=== PATIENT | female | born 1995 | race Caucasian/White ===

== ENCOUNTER 2021-02-21 16:15 | Outpatient (CLI) | payer OTHER, SELFPAY ==
--- NOTE | ~2021-02-21 | US_ITS ---
EXAMINATION: US OB follow up DATE: 02/21/2021 16:47 INDICATION: Routine care. TECHNIQUE: Real-time ultrasound of the pelvis was performed. COMPARISON: None. FINDINGS: There is a single living fetus in breech presentation. The placenta is anterior. heart rate is 145 beats per minute (bpm). The amniotic fluid volume is subjectively normal. The following biometric data were obtained: Biparietal diameter (BPD): 2.9 cm; head circumference (HC): 10.8 cm; abdominal circumference (AC): 9. 7 cm; femur length (FL): 1.9 cm. These measurements are concordant. Estimated weight is 132 g +/- 20 g, which correlates with >97th percentile when 08/26/21 is used as estimated date of delivery. As single measurements, these parameters are each equal to the following estimated gestational ages: BPD: 15 weeks 2 days. HC: 15 weeks 1 days. AC: 15 weeks 6 days. FL: 15 weeks 5 days. estimated gestational age based solely on measurements from this exam is 15 weeks 4 days +/- 1 weeks 1 days. IMPRESSION: 1. Single living fetus in breech presentation. 2. Large for gestational age. Estimated weight is 132 g +/- 20 g, which correlates with >97th percentile when 08/26/21 is used as estimated date of delivery. Reviewed, dictated and finalized at location A. IMPRESSION: 1. Single living fetus in breech presentation. 2. Large for gestational age. Estimated weight is 132 g +/- 20 g, which correlates with >97th percentile when 08/26/21 is used as estimated date of deli veryAnh
== END 2021-02-21 16:16 | disposition home or self-care (01) ==
PROVIDERS: Visit Provider Obstetrics & Gynecology
DX: Z34.92 Encounter for supervision of normal pregnancy, unspecified, second trimester (principal); Z3A.15 15 weeks gestation of pregnancy
CPT/HCPCS: 76816

== ENCOUNTER 2021-04-25 14:38 | Outpatient (CLI) | payer OTHER, SELFPAY ==
--- NOTE | ~2021-04-25 | US_ITS ---
EXAMINATION: US OB /maternal detail DATE: 04/25/2021 16:21 INDICATION: survey TECHNIQUE: Multiple obstetric sonographic images performed. FINDINGS: Comparison ultrasound dated 02/21/2021 There is a single living fetus in vertex presentation. The placenta is fundal without placenta previ a. Amniotic fluid volume is normal. JONO measures 17.6 cm. cardiac activity and movement is noted with a heart rate of 147 beats per minute. The following anatomy was identified as normal: 4 chamber heart 3 vessel cord cord insertion kidneys urinary bladder stomach spine diaphragm ventricles cisterna magna cerebellum The following biometric data were obtained: BPD: 58mm corresponds to gestational age 23 weeks 6 days. Head circumference: 227 mm corresponds to gestational age 24 weeks 5 days. Abdominal circumference: 206 mm corresponds to gestational age 25 weeks 2 days. Femur length: 45 mm corresponds to gestational age 24 weeks 6 days. Head circumference to abdominal circumference ratio: 1.1 (normal range for expected gestational age i s 1.04-1.22). Estimated weight: 756 grams +/- 113 grams using Hadlock method. IMPRESSION: 1: Single living intrauterine with an estimated gestational age of 24weeks 4days by initial ultrasound measurements, with an EDC of 08/11/2021 in vertex presentation. 2. Normal survey. Reviewed, dictated and finalized at location A. IMPRESSION: 1: Single living intrauterine with an estimated gestational age of 24 weeks 4days by initial ultrasound measurements, with an EDC of 08/11/2021 in ve rtex presentation. 2. Normal survey.
== END 2021-04-25 14:39 | disposition home or self-care (01) ==
LOC: ANHIMG 14:45
PROVIDERS: PCP Obstetrics & Gynecology; Visit Provider Obstetrics & Gynecology
DX: Z34.92 Encounter for supervision of normal pregnancy, unspecified, second trimester (principal); Z3A.24 24 weeks gestation of pregnancy
CPT/HCPCS: 76805

== ENCOUNTER 2021-06-01 11:45 | Outpatient (CLI) | payer OTHER, SELFPAY ==
--- NOTE | ~2021-06-01 | US_ITS ---
EXAMINATION: US OB follow up DATE: 06/01/2021 12:22 INDICATION: Routine care. TECHNIQUE: Real-time ultrasound of the pelvis was performed. COMPARISON: Ultrasound 04/25/2021, 02/21/2021 FINDINGS: There is a single living fetus in vertex presentation. The placenta is fundal. heart rate is 1 45 beats per minute (bpm). The amniotic fluid index is 20.9 cm, which is normal. The following biometric data were obtained: Biparietal diameter (BPD): 7.8 cm; head circumference (HC): 28.0 cm; abdominal circumference (AC): 24 .3 cm; femur length (FL): 5.4 cm. These measurements are discordant with FL/BPD < 5th percentile. Estimated weight is 1313 g +/- 197 g, which correlates with 19th percentile when 08/13/21 is us ed as estimated date of delivery. As single measurements, these parameters are each equal to the following estimated gestational ages: BPD: 31 weeks 1 days. HC: 30 weeks 5 days. AC: 28 weeks 4 days. FL: 28 weeks 5 days. estimated gestational age based solely on measurements from this exam is 29 weeks 6 days +/- 2 weeks 1 days. IMPRESSION: 1. Single living fetus in vertex presentation. 2. Estimated weight is 1313 g +/- 197 g, which correlates with 19th percentile when 08/13/21 i s used as estimated date of delivery. 3. Discordant biometrics with low FL/BPD ratio. Reviewed, dictated and finalized at location A. IMPRESSION: 1. Single living fetus in vertex presentation. 2. Estimated weight is 1313 g +/- 197 g, which correlates with 19th perc entile when 08/13/21 is used as estimated date of delivery. 3. Discordant biometrics with low FL/BPD ratio.
== END 2021-06-01 11:46 | disposition home or self-care (01) ==
PROVIDERS: PCP Obstetrics & Gynecology; Visit Provider Physician Assistant
DX: Z34.93 Encounter for supervision of normal pregnancy, unspecified, third trimester (principal); Z3A.29 29 weeks gestation of pregnancy
CPT/HCPCS: 36415; 76816; 85461

== ENCOUNTER 2021-06-28 11:35 | Observation (INO) | payer OTHER, SELFPAY ==
[2021-06-28 11:50] VITALS: BP 107/64; PULSE 85
[2021-06-28 12:00] VITALS: BP 109/68; PULSE 82
[2021-06-28 12:29] LABS: Add Urine Microscopic? YES; Appearance Urine Clear (Clear); Bacteria Urine Trace /hpf; Bilirubin Urine Negative (Negative); Blood Urine 1+ (Negative); Color Urine Yellow (Yellow); Glucose Urine UA Negative (Negative); Ketones Urine Negative (Negative); Leukocyte Esterase Ur Negative LEU/UL (Negative); Mucus Urine Rare /lpf; Nitrate Urine Negative (Negative); Protein Urine Negative (Negative); RBC Urine 21-50 /hpf (0-2); Specific Grav Ur 1.015 (1.001-1.035); Squamous Epithelial Cell Urine Moderate /hpf (Few); Urobilinogen Urine Negative mg/dL (<2.0); WBC Urine 0-3 /hpf
[2021-06-28 12:31] VITALS: BP 95/52; PULSE 69
[2021-06-28 13:01] VITALS: BP 80/59; PULSE 71
--- NOTE | 2021-06-28 16:12 | OBADM ---
This patient, Macey Esteves, admitted to the OB room OB Post 113 for observation. Patient/family oriented to hospital policies and general routines including ID bracelet, bed and alarms, visiting hours, pain management, procedures, bathroom and other care routines, personal items, smoking policy, room service/diet, and visiting hours. Patient/Family are encouraged to report perceived risks to care and to ask questions if they do not understand what they are told or what they should do.
--- NOTE | 2021-07-10 10:25 | PM.OBTRLD ---
OB - Triage/Final Diagnosis Visit Information Reason for evaluation: threatened labor Comments/Additional reasons for admission: I have assessed the risk for this patient, Macey Adamson Esteves, and determined that she would benefit from observation care. Evaluation Laboratory results: Laboratory Tests 06/28/21 12:01 Urine Color Yellow Urine Appearance Clear Urine pH 7.0 Ur Specific [place] 1.015 Urine Protein Negative Urine Glucose (UA) Negative Urine Ketones Negative Ur Blood (Man) 1+ H Urine Nitrate Negative Urine Bilirubin Negative Urine Urobilinogen Negative Leukocyte Esterase Rfl Negative Urine RBC 21-50 H Urine WBC 0-3 Ur Squamous Epith Cells Moderate H Urine Bacteria Trace Urine Mucus Rare
== END 2021-06-28 14:15 | disposition home or self-care (01) ==
LOC: ANHOBPP 13:24 → ANHLDR 07-02 11:11 → ANHOBPP 07-02 11:11
PROVIDERS: Admitting Provider Obstetrics & Gynecology; Visit Provider Obstetrics & Gynecology
DX: O47.03 False labor before 37 completed weeks of gestation, third trimester (principal); Z3A.33 33 weeks gestation of pregnancy
CPT/HCPCS: 81001; G0378; G0379

== ENCOUNTER 2021-07-27 20:43 | Observation (INO) | payer OTHER, SELFPAY ==
[2021-07-27 20:45] VITALS: BMI 35.3
[2021-07-27 20:54] VITALS: BP 111/71; PULSE 105
[2021-07-27 21:01] VITALS: BP 115/77; PULSE 109
[2021-07-27 21:16] VITALS: BP 113/72; PULSE 96
[2021-07-27 21:31] VITALS: BP 119/82; PULSE 89
--- NOTE | 2021-08-04 22:09 | PM.OBTRLD ---
OB - Triage/Final Diagnosis Visit Information Comments/Additional reasons for admission: I have assessed the risk for this patient, Macey Esteves, and determined that she would benefit from observation care. Final Diagnosis (1) False labor: Code(s): O47.9 - False labor, unspecified Status: Acute
== END 2021-07-27 21:45 | disposition home or self-care (01) ==
PROVIDERS: Admitting Provider Obstetrics & Gynecology; Visit Provider Obstetrics & Gynecology
DX: O47.1 False labor at or after 37 completed weeks of gestation (principal); Z3A.37 37 weeks gestation of pregnancy
CPT/HCPCS: G0378; G0379

== ENCOUNTER 2021-07-31 13:08 | Outpatient (RCR) | payer OTHER, SELFPAY ==
--- NOTE | ~2021-07-31 | US_ITS ---
EXAMINATION: US OB BPP wo non-stress DATE: 07/31/2021 14:49 INDICATION: Intrauterine growth retardation and polyhydramnios during third trimester . TECHNIQUE: Real-time pelvic ultrasound was performed. The interpreting radiologist was not present fo r the study. COMPARISON: 06/01/2021 FINDINGS: There is a single living fetus in vertex presentation. The placenta is anterior. heart rate is 150 beats per minute (bpm). Amniotic fluid volume is subjectively normal. Biophysical profile performed by the technologist: breathing (30 sec sustained breathing in 30 minutes): 2 out of 2 movement (3 gross body movements in 30 minutes): 2 out of 2 tone (one episode of vbxdkog-tdovmpyos-adjztoj limb movement): 2 out of 2 Amniotic fluid pocket (2 cm): 2 out of 2 Total score: 8 out of 8 IMPRESSION: 1. Single living fetus in vertex presentation with heart rate of 150 bpm. 2. Biophysical profile 8 out of 8. Reviewed, dictated and finalized at location A.
[2021-07-31 14:06] VITALS: BP 114/74; PULSE 94
== END 2021-09-03 09:28 | disposition home or self-care (01) ==
LOC: ANHOBOP 13:08
PROVIDERS: Visit Provider Obstetrics & Gynecology
DX: O36.5930 Maternal care for other known or suspected poor fetal growth, third trimester, not applicable or unspecified (principal); O36.8930 Maternal care for other specified fetal problems, third trimester, not applicable or unspecified; O40.3XX0 Polyhydramnios, third trimester, not applicable or unspecified; Z3A.38 38 weeks gestation of pregnancy
CPT/HCPCS: 59025; 76819; J2274

== ENCOUNTER 2021-07-31 13:57 | Outpatient (RCR) | payer OTHER, SELFPAY ==
[2021-07-31] MEDS: RHO(D) IMMUNE GLOBULIN 300 MCG/2 ML SYRINGE IM (15:05)
== END 2021-07-31 13:58 | disposition home or self-care (01) ==
LOC: ANHLAB 13:57
PROVIDERS: Visit Provider Obstetrics & Gynecology
DX: Z29.13 Encounter for prophylactic Rho(D) immune globulin (principal); O36.0190 Maternal care for anti-D [Rh] antibodies, unspecified trimester, not applicable or unspecified; Z3A.00 Weeks of gestation of pregnancy not specified
CPT/HCPCS: 36415; 85461; 86850; 86900; 86901; 90384; 96372; J2790

== ENCOUNTER 2021-08-03 05:43 | Inpatient (IN) | payer OTHER, SELFPAY ==
--- NOTE | 2021-07-31 13:44 | PC.NURSE ---
VERIFIED WITH OR SCHEDULE AND PATIENT--C/S ON 08/03/21 AT 1030 PATIENT GIVEN REQUISITION FOR PRE-OP LAB DRAW ON 08/02/21
--- NOTE | 2021-07-31 16:01 | PM.IMHP ---
H&P: HPI History of Present Illness Date/Time: 07/31/21 16:01 25 yo presents for repeat low-transverse section with delivery of infant and placenta at 38w6d. patient's complicated by growth restriction, 2 vessel umbilical cord, polyhydramnios and previous x2 with normal antepartum testing. she understands her condition procedure and risks involved and agrees to proceed. c/b growth restriction, polyhydramnios, Two vessel umbilical cord, history of STDs, MTHFR, hyperemesis gravidarum, HPV, BV, smoking, previous c-sectionx2, bipolar disorder, and GBS. her care began 02/14/2021 with total 9 visits monitored with serial ultrasounds, noninvasive testing revealing a male infant with normal genetics, alpha fetoprotein testing negative, MTHFR positive for heterozygous state treated with folic acid B12 progesterone and aspirin, 1 hour glucose normal, Rh negative with RhoGAM given recently, GBS positive, antepartum testing for high risk condition 2 vessel cord growth restriction poly I drained the OC with biophysical profiles normal and ST reactive. Consultation with maternal medicine agreed with delivery as early as 38 weeks with normal testing earlier if abnormal testing. I explained the procedure and the risks involved including but not limited to bleeding infection injury to bladder bowel baby pelvic vessels DVT pneumonia wound infection endometritis UTI risk of anesthesia risk of hemorrhage she understands accepts and agrees to proceed. boy- Desires duke , ped - Dr Lopez,bottle feed, IUD for control Chief Complaint: term , previous x2, growth restriction with polyhydramnios and 2 vessel umbilical cord, desires repeat Review of Systems Review of Systems: All systems reviewed & are unremarkable except as noted in HPI and below Constitutional: Constitutional: Reports no additional constitutional complaints Eyes: Eyes: Reports no additional eye complaints ENT: Reports system reviewed and no additional complaints, except as documented Cardiovascular: Cardiovascular: Reports no additional cardiovascular complaints Respiratory: Respiratory: Reports no additional respiratory complaints Gastrointestinal: Gastrointestinal: Reports no additional gastrointestinal complaints Genitourinary: Genitourinary: Reports no additional female genitourinary complaints Musculoskeletal: Musculoskeletal: Reports no additional musculoskeletal complaints Integumentary/Breasts: Skin/Breast: Reports system reviewed and no additional complaints, except as docu Neurologic: Reports system reviewed and no additional complaints, except as documented Psychiatric: Psychiatric: Reports no additional psychiatric complaints Endocrine: Endocrine: Reports no additional endocrine complaints Hematologic/Lymphatic: Hematologic/Lymphatic: Reports no additional hematologic/lymphatic complaints Allergic/Immunologic: Allergic/Immunologic: Reports no additional allergic/immunologic complaints [facility] Past Medical History Medical History (Updated 07/31/21 @ 16:46 by Toan Rojas MD) Asthma Candidiasis of vagina Chlamydia growth restriction GERD (gastroesophageal reflux disease) Group B streptococcal carriage complicating Heterozygous MTHFR mutation [id number] HPV (human papilloma virus) infection Migraine headache Polyhydramnios Rh negative status during Smoker Trichomonas infection Two vessel umbilical cord Venereal disease during Surgical History Surgical History (Updated 07/31/21 @ 16:48 by Toan Rojas MD) Delivery by section 11/05/20171407 lbs.12.99 oz.FPrimary [facility] 10/08/2019139.26 lbs.7 oz.FCesarean OnlyFull Term [facility]
--- NOTE | 2021-07-31 16:39 | P.HP_ITS ---
Obstetrics - Admit Note Admission Note: record reviewed. No pertinent additions to the history and/or any subsequent changes in the physical findings that are not consistent with the expected course of the were found. Additions to the history and/or subsequent changes in the physical findings follow. None. 25 yo presents for repeat low-transverse section with delivery of and placenta at 38w6d. patient's complicated by growth restriction, 2 vessel umbilical cord, polyhydramnios and previous x2 with normal antepartum testing. she understands her condition procedure and risks involved and agrees to proceed. c/b growth restriction, polyhydramnios, Two vessel umbilical cord, history of STDs, MTHFR, hyperemesis gravidarum, HPV, BV, smoking, previous c-sectionx2, bipolar disorder, and GBS. her care began 02/14/2021 with total 9 visits monitored with serial ultrasounds, noninvasive testing revealing a male infant with normal genetics, alpha fetoprotein testing negative, MTHFR positive for heterozygous state treated with folic acid B12 progesterone and aspirin, 1 hour glucose normal, Rh negative with RhoGAM given recently, GBS positive, antepartum testing for high risk condition 2 vessel cord growth restriction poly I drained the OC with biophysical profiles normal and ST reactive. Consultation with maternal medicine agreed with delivery as early as 38 weeks with normal testing earlier if abnormal testing. I explained the procedure and the risks involved including but not limited to bleeding infection injury to bladder bowel baby pelvic vessels DVT pneumonia w ound infection endometritis UTI risk of anesthesia risk of hemorrhage she understands accepts and agrees to proceed. boy- Desires circumsise , ped - Dr Lopez,bottle feed, IUD for control
[2021-08-03] VITALS (43 sets, daily range): BP systolic 95–146; BP diastolic 42–95; PULSE 28–119; RESP 16–20; TEMP 36.1–37.1; O2SAT 87–100; BMI 35.2; BMI 35.3
[2021-08-03 06:28] LABS: Basophils Percent Auto 0.4 % (0.2-1.2); Eosinophils Absolute Auto 0.1 K/mm3 (0-0.3); Eosinophils Percent Auto 1.2 % (0-4.4); Hematocrit 33.9 % (37.0-47.0); Hemoglobin 11.2 g/dL (12.0-15.0); Immature Granulocyte Absolute 0.06 K/mm3 (0.00-0.031); Immature Granulocyte Percent A 0.6 % (0-0.5); Lymphocytes Absolute Auto 2.17 K/mm3 (0.9-3.2); Lymphocytes Percent Auto 21.5 % (18.3-44.2); Mean Corpuscular Hemoglobin 28.4 pg (26-34); Mean Corpuscular Volume 85.8 fl (80-100); Mean Platelet Volume 10.2 fl (7.4-10.4); Monocytes Absolute Auto 0.8 K/mm3 (0.1-0.6); Monocytes Percent Auto 7.7 % (2.6-8.5); Neutrophils Absolute Auto 6.9 K/mm3 (1.3-6.7); Neutrophils Percent Auto 68.6 % (45.5-73.1); Platelet Count Result 207 k/mm3 (150-375); Red Blood Count 3.95 M/mm3 (4.2-5.4); Red Cell Distribution Width 14.6 % (11.5-14.5); White Blood Count 10.1 K/mm3 (4.5-10.0)
[2021-08-03] MEDS: LACTATED RINGERS 1,000 ML 125 ML IV CONT (06:30)
--- NOTE | 2021-08-03 06:54 | LDADM ---
This patient, Macey Esteves, was admitted to Labor/Delivery/Recovery 120 on 08/03/21 at 05:43. Plans for labor, pain management and were discussed with patient. Patient/family oriented to hospital policies and general routines including ID bracelet, bed and alarms, visiting hours, pain management, procedures, bathroom and other care routines, personal items, smoking policy, room service/diet and guest tray routines, security routines, and visiting hours. Patient/Family are encouraged to report perceived risks to care and to ask questions if they do not understand what they are told or what they should do. See OBIX for further documentation.
--- NOTE | 2021-08-03 07:12 | WPDANESEPPF ---
Anes - Initial Pre Proc Eval Procedure: Operation Date: 08/03/21 07:30 Proposed Procedures p Repeat Section - Toan Rojas MD Date/Time: 08/03/21 07:12 Surgeon: Toan Rojas MD Pre Op Diagnosis: C/S Patient Data Age: 25 Gender: F Height: 1.52 m Weight: 82 kg Last Vital Signs Pulse 91 08/03/21 06:31 BP 110/67 08/03/21 06:31 Allergies Allergy/AdvReac Type Severity Reaction Status Date / Time No Known Allergies Allergy Mild Verified 06/16/12 15:56 Laboratory Tests 08/03/21 08/03/21 06:22 06:22 WBC 10.1 K/mm3 H K/mm3 (4.5-10.0) RBC 3.95 M/mm3 L M/mm3 (4.2-5.4) Hgb 11.2 g/dL L g/dL (12.0-15.0) Hct 33.9 % L % (37.0-47.0) MCV 85.8 fl fl (80-100) MCH 28.4 pg pg (26-34) MCHC 33.0 g/dl g/dl (32-36) RDW 14.6 % H % (11.5-14.5) Plt Count 207 k/mm3 k/mm3 (150-375) MPV 10.2 fl fl (7.4-10.4) Immature Gran % (Auto) 0.6 % H % (0-0.5) Neut % (Auto) 68.6 % % (45.5-73.1) Lymph % (Auto) 21.5 % % (18.3-44.2) [place] % (Auto) 7.7 % % (2.6-8.5) Eos % (Auto) 1.2 % % (0-4.4) Baso % (Auto) 0.4 % % (0.2-1.2) Lymph # (Auto) 2.17 K/mm3 K/mm3 (0.9-3.2) [place] # (Auto) 0.8 K/mm3 H K/mm3 (0.1-0.6) Eos # (Auto) 0.1 K/mm3 K/mm3 (0-0.3) Baso # (Auto) 0.0 K/mm3 K/mm3 (0.0-0.1) Abs Immat Gran (auto) 0.06 K/mm3 H K/mm3 (0.00-0.031) Absolute Neuts (auto) 6.9 K/mm3 H K/mm3 (1.3-6.7) Absolute Nucleated RBC 0.0 K/mm3 K/mm3 (0.0-0.012) Nucleated RBC % 0.0 % % (0.0-0.2) RPR Pending Patient hx anesthesia problems: none Family hx anesthesia problems: none Results Review: All pre-operative results and documents have been reviewed as part of the pre-operative evaluation. [facility] Past Medical History Medical History ADD (attention deficit disorder) Asthma Bipolar disorder Candidiasis of vagina Chlamydia growth restriction GERD (gastroesophageal reflux disease) Group B streptococcal carriage complicating Heterozygous MTHFR mutation [id number] HPV (human papilloma virus) infection Migraine headache Polyhydramnios Rh negative status during Smoker Trichomonas infection Two vessel umbilical cord Venereal disease during Surgical History Surgical History Delivery by section 11/05/20171407 lbs.12.99 oz.FPrimary CesareanFull Term [facility] Delivery by section 10/08/2019139.26 lbs.7 oz.FCesarean [facility] Family History Grandparent Diabetes mellitus Throat cancer Mother Diabetes mellitus Breast cancer in female Sibling Diabetes mellitus Social History Social History Smoking packs per day: 1 Smoking cigarettes per day: 20.0 Years smoked: 3 Smoking pack-years: 3.00 Smoking status: Never smoker Tobacco type: cigarettes Second hand tobacco smoke exposure: No Alcohol intake: former Substance use: current Substance use type: marijuana Last use: ONE WEEK AGO Gender identity (if verbalized by the patient): Female Sexual Orientation (if Verbalized by the Patient): Straight or Heterosexual Spiritual care concerns: No Agree to blood products: Yes Anes - Eval Final PreProcedure Day of Procedure 08/03/21 07:12 Patient weight: obese Heart: regular rate and rhythm Lungs: decreased breath sounds Airway: Mallampati scale class II Neurological: alert and oriented Last oral intake: >/= 8 hours ASA classification: III Emergent: no Anesthetic plan: proceed Anesthesia type and monitoring
--- NOTE | 2021-08-03 07:19 | P.HPUP_ITS ---
History and Physical Update Update Date/Time: 08/03/21 06:39 History and Physical has been reviewed, including an updated exam of the patient. There are NO changes in the patient's condition. Risks, benefits, and alternatives have been discussed and questions answered. Patient agrees to proceed with procedure. 25 yo presents for repeat low-transverse section with delivery of and placenta at 38w6d. patient's complicated by growth restriction, 2 vessel umbilical cord, polyhydramnios and previous x2 with normal antepartum testing. she understands her condition procedure and risks involved and agrees to proceed. c/b growth restriction, polyhydramnios, Two vessel umbilical cord, history of STDs, MTHFR, hyperemesis gravidarum, HPV, BV, smoking, previous c-sectionx2, bipolar disorder, and GBS. her care began 02/14/2021 with total 9 visits monitored with serial ultrasounds, noninvasive testing revealing a male infant with normal genetics, alpha fetoprotein testing negative, MTHFR positive for heterozygous state treated with folic acid B12 progesterone and aspirin, 1 hour glucose normal, Rh negative with RhoGAM given recently, GBS positive, ant epartum testing for high risk condition 2 vessel cord growth restriction poly I drained the OC with biophysical profiles normal and ST reactive. Consultation with maternal medicine agreed with delivery as early as 38 weeks with normal testing earlier if abnormal testing. I explained the procedure and the risks involved including but not limited to bleeding infection injury to bladder bowel baby pelvic vessels DVT pneumonia wound infection endometritis UTI risk of anesthesia risk of hemorrhage she understands accepts and agrees to proceed. boy- Desires circumsise , ped - Dr Lopez,bottle feed, IUD for control
[2021-08-03] MEDS: ceFAZolin 2 GM/D5W 50 ML 2 GM/50 ML BAG IVPB (07:35)
[2021-08-03] MEDS: KETOROLAC 30 MG/ML VIAL (*BKC) IV PUSH ×2 (08:17→16:59)
--- NOTE | 2021-08-03 08:42 | P.PCNOB_ITS ---
OB - Delivery Note Procedure Delivery date: 08/03/21 Procedure: Procedures Operation Date: 08/03/21 07:30 < repeat low-transverse section with delivery of viable male and placenta> events: Previous Intrapartal events: None Induction method: none Delivery monitor: external FHT and external uterine Route of delivery: ( repeat low-transverse) Episiotomy description: None Laceration Description: None Specimen: Yes ( placenta, cord blood, cord blood gases) Quantitative Blood Loss (ml): 580 Anesthesia type: Spinal ( Duramorph) Disposition: floor Complications: none Narrative: see detailed operative note [place] Date of : 08/03/21 Time of : 08:02 Weeks of gestation at delivery: 39 gender: Male Weight (pounds): 6 Weight (ounces): 12 presentation: vertex position: Right Occiput Posterior Placenta delivery description: Manual Removal and Normal Configuration cord vessel description: 3 Vessels score one minute: 8 score five minutes: 9 Narrative: normal transition taken to the nursery in stable condition
[2021-08-03 08:45] LABS: Barbiturate Screen Urine Negative (Negative); Benzodiazepines Screen Urine Negative (Negative)
--- NOTE | 2021-08-03 08:45 | W.PM.PROC2 ---
Procedure Note - Detailed Date of Procedure 08/03/21 Pre-op Diagnosis (1) Term : Code(s): Z34.90 - Encounter for supervision of normal , unspecified, unspecified trimester Status: Acute (2) Delivery by section: Status: Acute (3) Delivery by section: Status: Acute (4) growth restriction: Status: Acute (5) 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 Status: Acute (6) Polyhydramnios: Code(s): O40.9XX0 - Polyhydramnios, unspecified trimester, not applicable or unspecified Status: Acute (7) Smoker: Code(s): F17.200 - Nicotine dependence, unspecified, uncomplicated Status: Acute (8) Rh negative status during : Code(s): O26.899 - Other specified related conditions, unspecified trimester; Z67.91 - Unspecified blood type, Rh negative Status: Acute (9) Heterozygous MTHFR mutation [id number]: Code(s): Z15.89 - Genetic susceptibility to other disease Status: Acute (10) Group B streptococcal carriage complicating : Code(s): O99.820 - Streptococcus B carrier state complicating Status: Acute (11) HPV (human papilloma virus) infection: Code(s): B97.7 - Papillomavirus as the cause of diseases classified elsewhere Status: Acute Post-op Diagnosis same ((1) Term : Code(s): Z34.90 - Encounter for supervision of normal , unspecified, unspecified trimester Status: Acute (2) Delivery by section: Status: Acute (3) Delivery by section: Status: Acute (4) growth restriction: Status: Ac) Procedure Performed repeat low-transverse section with delivery of viable male infant and placenta Surgeon Toan Rojas MD [employer] Emmanuelle assistant technician Anesthesia spinal ( with Duramorph by Solomon REYES) Indications previous section x2 desires repeat section Findings viable male infant delivered at 8:02 a.m. on 08/03/2021 occiput posterior scores 8 and 9 at 1 and 5 minutes respectively weight 6 lb 12 oz length 19 in Spontaneous respirations and cry normal transition taken to the nursery in stable condition with normal exam Placenta intact with a three-vessel cord delivered at 8:04 a.m. sent to pathology Uterus tubes ovaries normal Omental anterior abdominal wall adhesions Antibiotic prophylaxis Ancef 3 g VTE prevention SCDs Counts correct Complications none Cord gases cord blood and placenta sent Absorbable vini and Dermabond to the skin Taken to the recovery room stable condition Description of Procedure informed consent obtained the patient was taken to the operating room where she was placed in the sitting position a spinal anesthetic was administered with Duramorph. Patient was placed in the supine position and a Wiley catheter was inserted and then her abdomen was prepped and then she was draped in the usual sterile fashion. A time-out was performed. An elliptical incision was made around the old scar and the old scar was excised using electrocautery. The fascia was entered with electrocautery and extended bilaterally. Fascia was undermined inferiorly and superiorly. Rectus muscles were the midline. A transverse incision was made to the uterus rupture membranes revealed clear fluid the incision was extended bilaterally digitally. The vertex was in the occiput posterior position and required rotation to get the rounded head to be delivered with fundal pressure. The vertex was then delivered via the abdominal incision with the nose and throat bulb suction cord was clamped and cut the infant was handed to the nursery nurse in attendance scores 8 9 at 1 and 5 minutes spontaneous respirations and cry infant taken to the nursery in stable condition with normal transition. Th
[2021-08-03 08:51] LABS: Amphetamine Screen Urine Negative (Negative); Cannabinoid Screen Urine Positive (Negative); Methadone Screen Urine Negative (Negative); Opiate Screen Urine Negative (Negative); Phencyclidine Screen Urine Negative (Negative)
[2021-08-03] MEDS: diphenhydrAMINE HCl INJ 50 MG/ML VIAL 25 MG IV PUSH (08:58)
[2021-08-03] MEDS: OXYTOCIN 30 UNITS/NS 500 ML 30 UNITS/500 ML BAG 125 UNITS IV CONT (10:49)
--- NOTE | 2021-08-03 10:53 | PC.NURSE ---
Patient transferred to post room #284 via stretcher. Support person present. Oriented to unit, room, information board, rooming in, admission packet and security measures. Patient verbalizes understanding.
--- NOTE | 2021-08-03 11:05 | PM.OBTRLD ---
OB - Triage/Final Diagnosis Visit Information Comments/Additional reasons for admission: I have assessed the risk for this patient, Macey Esteves, and determined that she would benefit from observation care. Evaluation Laboratory results: Laboratory Tests 08/03/21 08/03/21 08/03/21 06:22 06:22 07:45 WBC 10.1 H RBC 3.95 L Hgb 11.2 L Hct 33.9 L MCV 85.8 MCH 28.4 MCHC 33.0 RDW 14.6 H Plt Count 207 MPV 10.2 Immature Gran % (Auto) 0.6 H Neut % (Auto) 68.6 Lymph % (Auto) 21.5 [place] % (Auto) 7.7 Eos % (Auto) 1.2 Baso % (Auto) 0.4 Lymph # (Auto) 2.17 [place] # (Auto) 0.8 H Eos # (Auto) 0.1 Baso # (Auto) 0.0 Abs Immat Gran (auto) 0.06 H Absolute Neuts (auto) 6.9 H Absolute Nucleated RBC 0.0 Nucleated RBC % 0.0 Urine Opiates Screen Negative Urine Methadone Screen Negative Ur Barbiturates Screen Negative Ur Phencyclidine Scrn Negative Ur Amphetamine Screen Negative U Benzodiazepines Scrn Negative Urine Cocaine Screen TNP U Cannabinoids Screen Positive A Blood Type O Negative Antibody Screen Positive Vital signs: Vital Signs - 24 hr 08/03/21 06:31 08/03/21 08:40 08/03/21 08:41 Temperature 97.0 F L Pulse Rate 91 71 Respiratory Rate Blood Pressure 110/67 108/67 Pulse Oximetry 100 08/03/21 08:45 08/03/21 08:46 08/03/21 08:50 Temperature Pulse Rate 76 Respiratory Rate Blood Pressure 122/73 Pulse Oximetry 100 100 08/03/21 08:51 08/03/21 08:55 08/03/21 08:57 Temperature Pulse Rate 67 112 H Respiratory Rate Blood Pressure 105/65 99/42 L Pulse Oximetry 100 08/03/21 09:00 08/03/21 09:01 08/03/21 09:05 Temperature Pulse Rate Respiratory Rate Blood Pressure 114/87 Pulse Oximetry 100 100 08/03/21 09:06 08/03/21 09:10 08/03/21 09:11 Temperature Pulse Rate 60 71 Respiratory Rate Blood Pressure 124/95 H 134/94 H Pulse Oximetry 100 08/03/21 09:15 08/03/21 09:16 08/03/21 09:20 Temperature Pulse Rate 55 L Respiratory Rate Blood Pressure 127/79 Pulse Oximetry 100 100 08/03/21 09:21 08/03/21 09:25 08/03/21 09:26 Temperature Pulse Rate 56 L 58 L Respiratory Rate 20 Blood Pressure 125/84 123/80 Pulse Oximetry 100 08/03/21 09:30 08/03/21 09:32 08/03/21 09:35 Temperature Pulse Rate 77 Respiratory Rate Blood Pressure 122/64 Pulse Oximetry 100 100 08/03/21 09:40 08/03/21 09:45 08/03/21 09:47 Temperature Pulse Rate 76 Respiratory Rate 20 Blood Pressure 113/50 L Pulse Oximetry 98 100 08/03/21 09:48 08/03/21 09:50 08/03/21 09:52 Temperature Pulse Rate 74 119 H Respiratory Rate Blood Pressure 118/77 95/64 L Pulse Oximetry 100 08/03/21 09:54 08/03/21 09:55 08/03/21 09:57 Temperature Pulse Rate 72 Respiratory Rate 20 Blood Pressure 138/86 Pulse Oximetry 88 L 08/03/21 10:10 08/03/21 10:25 08/03/21 10:32 Temperature Pulse Rate 68 Respiratory Rate 20 20 Blood Pressure 119/88 Pulse Oximetry 08/03/21 10:37 08/03/21 10:40 08/03/21 10:41 Temperature Pulse Rate 69 76 Respiratory Rate 20 Blood Pressure 124/58 L 115/74 Pulse Oximetry Final Diagnosis (1) False labor: Code(s): O47.9 - False labor, unspecified Status: Acute
[2021-08-03 11:51] LABS: Rapid Plasma Reagin Non-Reactive (NonReactive)
[2021-08-03] MEDS: HYDROcodone/acetaminophen (*CRX) 5-325 MG TABLET 1 TAB PO (12:32)
[2021-08-03] MEDS: DEXTROSE 5%/0.45% SOD CHL 1,000 ML 125 ML IV CONT (17:00)
[2021-08-03] MEDS: SIMETHICONE 80 MG TAB.CHEW PO (21:48)
[2021-08-03] MEDS: HYDROcodone/acetaminophen (*CRX) 10-325 MG TABLET 1 TAB PO (21:48)
[2021-08-03] MEDS: IBUPROFEN 600 MG TABLET PO (23:19)
[2021-08-04] MEDS: HYDROcodone/acetaminophen (*CRX) 10-325 MG TABLET 1 TAB PO ×7 (02:38→23:39)
[2021-08-04] MEDS: SIMETHICONE 80 MG TAB.CHEW PO ×2 (02:44→07:35)
[2021-08-04 04:30] VITALS: BP 121/78; PULSE 99; RESP 16; TEMP 36.1
[2021-08-04 05:24] LABS: Basophils Percent Auto 0.3 % (0.2-1.2); Eosinophils Absolute Auto 0.1 K/mm3 (0-0.3); Eosinophils Percent Auto 0.8 % (0-4.4); Hematocrit 29.8 % (37.0-47.0); Hemoglobin 9.9 g/dL (12.0-15.0); Immature Granulocyte Absolute 0.07 K/mm3 (0.00-0.031); Immature Granulocyte Percent A 0.5 % (0-0.5); Lymphocytes Percent Auto 19.6 % (18.3-44.2); Mean Corpuscular HGB Conc 33.2 g/dl (32-36); Mean Corpuscular Hemoglobin 28.7 pg (26-34); Mean Corpuscular Volume 86.4 fl (80-100); Monocytes Absolute Auto 0.8 K/mm3 (0.1-0.6); Monocytes Percent Auto 6.3 % (2.6-8.5); Neutrophils Absolute Auto 9.2 K/mm3 (1.3-6.7); Neutrophils Percent Auto 72.5 % (45.5-73.1); Platelet Count Result 181 k/mm3 (150-375); Red Blood Count 3.45 M/mm3 (4.2-5.4); Red Cell Distribution Width 14.6 % (11.5-14.5); White Blood Count 12.8 K/mm3 (4.5-10.0)
[2021-08-04] MEDS: IBUPROFEN 600 MG TABLET PO ×3 (05:27→17:52)
[2021-08-04] MEDS: metroNIDAZOLE 250 MG TABLET 500 MG PO ×4 (06:17→23:40)
[2021-08-04] MEDS: POLYSACCHARIDE IRON COMPLEX 150 MG CAPSULE PO ×2 (07:35→17:52)
[2021-08-04] MEDS: DOCUSATE SODIUM 100 MG CAPSULE PO ×2 (07:35→17:52)
[2021-08-04 07:40] VITALS: BP 120/51; PULSE 68; RESP 16; TEMP 36.2; O2SAT 98
[2021-08-04] MEDS: AZITHROMYCIN 250 MG TABLET 500 MG PO (08:27)
--- NOTE | 2021-08-04 09:12 | PM.OBPNVD ---
OB - PN: Subj Subjective Date/time seen: 08/04/21 09:12 Patient comments: no complaints, pain well controlled, tolerating diet and flatus present baby status: doing well and bottle feeding well feeding status: exclusively bottle feeding OB - PN: Obj Data Labs CBC & Chem 7: 08/04/21 04:29 Labs: Laboratory Results - last 24 hr 08/03/21 08/03/21 08/03/21 06:22 06:22 07:45 WBC RBC Hgb Hct MCV MCH MCHC RDW Plt Count MPV Immature Gran % (Auto) Neut % (Auto) Lymph % (Auto) [place] % (Auto) Eos % (Auto) Baso % (Auto) Lymph # (Auto) [place] # (Auto) Eos # (Auto) Baso # (Auto) Abs Immat Gran (auto) Absolute Neuts (auto) Absolute Nucleated RBC Nucleated RBC % Urine Cocaine Screen TNP RPR Non-reactive Blood Type Antibody Screen Antibody Identification Passive Due to RH Imm Glob Antigen Identification TNP MARKUS, IgG Interpret Not Performed MARKUS, Poly Interpret Negative MARKUS, Complement Interp Not Performed Screen Baby's Blood Type Baby's MARKUS Doses of RhIg Required 08/04/21 08/04/21 04:29 04:29 WBC 12.8 H RBC 3.45 L Hgb 9.9 L Hct 29.8 L MCV 86.4 MCH 28.7 MCHC 33.2 RDW 14.6 H Plt Count 181 MPV 11.0 H Immature Gran % (Auto) 0.5 Neut % (Auto) 72.5 Lymph % (Auto) 19.6 [place] % (Auto) 6.3 Eos % (Auto) 0.8 Baso % (Auto) 0.3 Lymph # (Auto) 2.50 [place] # (Auto) 0.8 H Eos # (Auto) 0.1 Baso # (Auto) 0.0 Abs Immat Gran (auto) 0.07 H Absolute Neuts (auto) 9.2 H Absolute Nucleated RBC 0.0 Nucleated RBC % 0.0 Urine Cocaine Screen RPR Blood Type O Negative Antibody Screen TNP Antibody Identification Antigen Identification MARKUS, IgG Interpret MARKUS, Poly Interpret MARKUS, Complement Interp Screen Negative Baby's Blood Type O pos Baby's MARKUS Negative Doses of RhIg Required 1 OB - PN A/P Assessment and Plan (1) Term delivered: Code(s): O80 - Encounter for full-term uncomplicated delivery Status: Acute (2) Delivery by section: Status: Acute Plan day: 1 Plan: routine care, discharge home and follow up 6 weeks Time Spent With Patient Time: Total time spent is greater than 50% in coordination of care (as documented) at patient's floor/unit and/or counseling patient: Time with patient: less than 15 minutes Review of Systems Review of Systems: All systems reviewed & are unremarkable except as noted in HPI and below Exam Const: General: comfortable, no acute distress, alert and awake Chest: Breast/axilla inspection: normal inspection of the breasts Resp: Effort & Inspection: normal respiratory effort Cardio: Rate: regular rate GI: Inspection: incision (Dressing dry and intact) GI Palp: Yes Soft to palpation Percussion: Yes normal to percussion Auscultation: normal bowel sounds : External Female Exam: normal external appearance Bimanual exam- vagina & uterus: non-tender Psych: Appearance: grossly normal Mental Status: mental status grossly normal Affect: normal affect Attitude: cooperative Thought content: Yes Normal thought content present Judgement: Good judgement present (Psych)
--- NOTE | 2021-08-04 13:11 | PCCCNOTE ---
Addendum entered by JIMMIE Dillard 08/04/21 13:46: Email from [facility]: The information you provided did not meet one of the criteria for an investigation (eligible victim, eligible perpetrator, eligible event, or jurisdiction). If there is a current open case involving this family, the assigned worker will be notified of your report so he/she can follow up; additionally the information provided has been documented and will be kept on file. VERONICA Ocampo notified. Possible discharge for pt. and baby tomorrow. Original Note: Met with pt. regarding positive THC on her UDC. Pt. reports using THC to increase her appetite and control her nausea. Baby did not have any orders for meconium testing or UDS. Pt's support person, JUAN DAVID Mai, was in the restroom the duration of Care Coordination visit with pt. Pt. reports she and will live in [place] with JUAN DAVID Mai and one of her daughters. The oldest daughter lives with her mother Thalia in [place]. Pt. reports having a big support system and having all necessary baby supplies. Pt. states working on being established with [facility] and already established with [facility] [place]. Pt. states her prior involvement consists of unfounded cases and nothing open currently. Pt. reports having a [facility] preventative worker named Ms. Leon. resources provided. [facility] online intake #[phone]. VERONICA Ocampo aware.
[2021-08-04] MEDS: RHO(D) IMMUNE GLOBULIN 300 MCG/2 ML SYRINGE IM (14:49)
--- NOTE | 2021-08-04 14:54 | WPDANLDNPN2 ---
Anes-Prog Note L&D-Neuraxial Date/Time: 08/04/21 14:54 Neuraxial medications: intrathecal PF morphine Opiod-related complaints: none Patient feedback: Patient satisfied with post-operative pain management.
--- NOTE | 2021-08-04 14:54 | WPDANLDPN2 ---
Anes-Prog Note L&D Date/Time: 08/04/21 14:54 Comfortable throughout: section Neuraxial method: spinal Epidural/Spinal procedure site: clean & non-tender Neuro status: Neuro function grossly intact. Cardiovascular status: normal Respiratory status: normal Airway patency: baseline Mental status: baseline Post-Op hydration status: normal Vital Signs: Last Vital Signs Temp 36.2 C L 08/04/21 07:40 Pulse 68 08/04/21 07:40 Resp 16 08/04/21 07:40 BP 120/51 L 08/04/21 07:40 Pulse Ox 98 08/04/21 07:40 Pain score (VAS): 2 I/O: Intake & Output 08/03/21 08/04/21 08/04/21 23:59 07:59 15:59 Intake Total 1820 700 Output Total 1250 1550 Balance 570 -850 Post-procedural complaints: none Patient feedback: Patient satisfied with anesthetic care.
[2021-08-04 16:30] VITALS: BP 119/77; PULSE 86; RESP 16; TEMP 36.2; O2SAT 100
[2021-08-04 21:00] VITALS: BP 114/65; PULSE 85; RESP 18; TEMP 36.9; O2SAT 100
--- NOTE | 2021-08-04 23:29 | PC.NURSE ---
08/04/2021 at 2200 Patient viewed the discharge video Mother & Baby Care, The First Two Weeks . Patient was given the opportunity and encouraged to ask questions. Patient verbalized understanding of information shared and has been given the mother/baby guide for home reference.
[2021-08-05] MEDS: SIMETHICONE 80 MG TAB.CHEW PO ×3 (03:15→10:19)
[2021-08-05] MEDS: HYDROcodone/acetaminophen (*CRX) 10-325 MG TABLET 1 TAB PO ×2 (03:15→10:29)
[2021-08-05] MEDS: IBUPROFEN 600 MG TABLET PO ×2 (03:15→10:18)
[2021-08-05] MEDS: metroNIDAZOLE 250 MG TABLET 500 MG PO ×2 (05:52→12:26)
[2021-08-05] MEDS: HYDROcodone/acetaminophen (*CRX) 5-325 MG TABLET 1 TAB PO (05:52)
--- NOTE | 2021-08-05 06:27 | PM.OBDSVD ---
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 Status: Acute (6) Polyhydramnios: Code(s): O40.9XX0 - Polyhydramnios, unspecified trimester, not applicable or unspecified Status: Acute (7) Smoker: Code(s): F17.200 - Nicotine dependence, unspecified, uncomplicated Status: Acute (8) Rh negative status during : Code(s): O26.899 - Other specified related conditions, unspecified trimester; Z67.91 - Unspecified blood type, Rh negative Status: Acute (9) 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: Code(s): Z15.89 - Genetic susceptibility to other disease Status: Acute (10) Group B streptococcal carriage complicating : Code(s): O99.820 - Streptococcus B carrier state complicating Status: Acute (11) HPV (human papilloma virus) infection: Code(s): B97.7 - Papillomavirus as the cause of diseases classified elsewhere Status: Acute DS: Discharge Diagnosis Discharge Diagnosis (1) Term delivered: Code(s): O80 - Encounter for full-term uncomplicated delivery Status: Acute (2) Delivery by section: Status: Acute (3) Delivery by section: Status: Acute (4) growth restriction: Status: Acute (5) 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 Status: Acute (6) Polyhydramnios: Code(s): O40.9XX0 - Polyhydramnios, unspecified trimester, not applicable or unspecified Status: Acute (7) Heterozygous MTHFR mutation [id number]: Code(s): Z15.89 - Genetic susceptibility to other disease Status: Acute (8) Rh negative status during : Code(s): O26.899 - Other specified related conditions, unspecified trimester; Z67.91 - Unspecified blood type, Rh negative Status: Acute (9) Group B streptococcal carriage complicating : Code(s): O99.820 - Streptococcus B carrier state complicating Status: Acute (10) HPV (human papilloma virus) infection: Code(s): B97.7 - Papillomavirus as the cause of diseases classified elsewhere Status: Acute (11) Smoker: Code(s): F17.200 - Nicotine dependence, unspecified, uncomplicated Status: Acute OB - DS: Summary Hospital Course Time spent discussing smoking cessation with patient: 3 to 10 minutes OB Procedures : NST and Ultrasound OB Procedures Intrapartum: ( repeat) low cervical, transverse and GBS prophylaxis OB Procedures: : RHo (D) lg Peripartum Data Delivery Method: Section ( repeat low-transverse section with delivery of viable male and placenta) Laceration Description: None Episiotomy description: None Procedures: Procedures Operation Date: 08/03/21 07:30 < repeat low-transverse section with delivery of viable male infant and placenta> complications: none [place] 1: Gender: Male Disposition of : home Status at Discharge Cognitive/behavioral status at discharge: normal Functional status at discharge: independent ambulation Overall status at discharge: patient is back to baseline Time Spent with Patient Time attestation: Total time spent providing and/or coordinating discharge services: Exam Const: General: cooperative, healthy appearing, comfortable, no acute distress, well developed, alert, awake and Physically active Nutritional Ailin
[2021-08-05 07:00] VITALS: BP 116/68; PULSE 86; RESP 18; TEMP 36.6; O2SAT 100
[2021-08-05] MEDS: DOCUSATE SODIUM 100 MG CAPSULE PO (10:17)
[2021-08-05] MEDS: POLYSACCHARIDE IRON COMPLEX 150 MG CAPSULE PO (10:17)
[2021-08-05] MEDS: AZITHROMYCIN 250 MG TABLET 500 MG PO (10:18)
--- NOTE | 2021-08-05 14:25 | PC.NURSE ---
1235 Mother states she has read through her discharge papers and did not have questions; FOB was asked to also read through them, and he stated the mother read them to him. Papers were signed.
--- NOTE | 2021-08-05 18:28 | PC.NURSE ---
1248 pt completed the antibiotics ordered for her prior to discharge home; nurse encouraged pt to talk with her DrAnh at her f/u visit about possible retesting for STD's to make sure infections have cleared; she voiced understanding. Nurse reinforced importance of practicing frequent and good handwashing for her own self care, and in caring for baby. She voiced understanding.
[2021-08-07 10:18] VITALS: BP 115/79; PULSE 81; RESP 20; TEMP 37.2; O2SAT 99
[2021-09-06 11:18] LABS: Reference Lab Test Result None Detected
== END 2021-08-05 12:48 | disposition home or self-care (01) | DRG 540 ==
LOC: ANHLDR 09:03 → ANHOB2 11:08
PROVIDERS: Admitting Provider Obstetrics & Gynecology; Visit Provider Obstetrics & Gynecology
PROC: 10D00Z1 Extraction of Products of Conception, Low, Open Approach (ICD-10-PCS; CPT 59514; principal; 2021-08-03 07:30)
DX: O34.211 Maternal care for low transverse scar from previous cesarean delivery (principal); O36.5930 Maternal care for other known or suspected poor fetal growth, third trimester, not applicable or unspecified; O40.3XX0 Polyhydramnios, third trimester, not applicable or unspecified; O99.283 Endocrine, nutritional and metabolic diseases complicating pregnancy, third trimester; E72.12 Methylenetetrahydrofolate reductase deficiency; O99.820 Streptococcus B carrier state complicating pregnancy; O99.333 Smoking (tobacco) complicating pregnancy, third trimester; F17.210 Nicotine dependence, cigarettes, uncomplicated; Z3A.38 38 weeks gestation of pregnancy; Z37.0 Single live birth
CPT/HCPCS: 36415; 80307; 85025; 85461; 86592; 86850; 86880; 86900; 86901; 86902; 88307; 90384; A9270; J0131; J0690; J1200; J1885; J2370; J2405; J2590; J2790; J7120